=== PATIENT | male | born 1950 | race Caucasian/White ===

== ENCOUNTER → 2016-12-10 | Day surgery (SDC) | payer OTHER ==
[~2016-12-10] MED LIST: OMEPRAZOLE20 M1 PO; OMEPRAZOLE40 M1 PO; PERCOCET10 PO; XANAX1 MG PO; XYZAL5 MG PO
--- NOTE | ~2016-12-10 | OR ---
Unit #: [id number] #: [id number] Patient: UZMA HORTON [id number] [address] [address] [id number] O MR#: [id number] NAME: UZMA HORTON. ROOM: Date of Procedure: 12/10/2016 Admission Date: 12/10/2016 Surgeon: Catarino Nunez M.D. : 1950 Attending Physician: Catarino Nunez M.D. Primary Care Physician: Samantha Hickey M.D. OPERATIVE REPORT JOB NOTE: CC: [facility] PREOPERATIVE DIAGNOSES Back pain, radiculopathy, herniated nucleus pulposus. POSTOPERATIVE DIAGNOSES Back pain, radiculopathy, herniated nucleus pulposus. PROCEDURE PERFORMED Lumbar epidural steroid injection with intravenous sedation and fluoroscopic guidance for needle localization. INDICATIONS FOR PROCEDURE The patient is a 66-year-old male with worsening back and left lower extremity pain. This is not settle with conservative treatment. Workup demonstrated a left-sided L5-S1 disk herniation impinging left S1 nerve root. Plan is for trial of epidural steroids. Based on his history, pathology, and symptomatology, he was seen Dr. Bowen, who recommend holding on surgery. DESCRIPTION OF PROCEDURE The patient was placed in a seated position. Standard monitors were applied. 2 mg of Versed were given for sedation and anxiolysis, which were adequate. Vital signs remained stable. Sterile prep and drape then of the lumbar area was performed. The skin then at the L5 level was localized with 1% lidocaine. An 18-gauge Hustead needle was then advanced via loss of resistance technique and fluoroscopic guidance in toward the epidural space. The patient did not complain of pain or paresthesia during needle advancement. After confirming proper positioning with fluoroscopy and radiographic contrast, 80 mg of Depo-Medrol and 4 mL of 0.125% bupivacaine were deposited. The patient tolerated the procedure otherwise well and was discharged to the recovery room in stable condition. Dictated by... Catarino Nunez M.D. LHP/modl TD: 12/10/2016 10:54 JOB #: [id number] Unit #: [id number] #: [id number] Patient: UZMA HORTON OPERATIVE REPORT Page 1 of 1 X Catarino Nunez MD X PROCEDURE OPERATIVE NOTE
== END | disposition home or self-care (01) ==
LOC: CCSC 08:08
PROVIDERS: Pain Medicine Pain Medicine
PROC: 3E0S3BZ Introduction of Anesthetic Agent into Epidural Space, Percutaneous Approach (ICD-10-PCS; 2016-12-10)
PROC: 3E0S33Z Introduction of Anti-inflammatory into Epidural Space, Percutaneous Approach (ICD-10-PCS; principal; 2016-12-10 09:15)
DX: M51.16 Intervertebral disc disorders with radiculopathy, lumbar region (principal)
CPT/HCPCS: J1040; J2250

== ENCOUNTER → 2016-12-22 | Day surgery (SDC) | payer OTHER ==
--- NOTE | ~2016-12-22 | OR ---
Unit #: [id number] #: [id number] Patient: UZMA HORTON [id number] [address] [address] [id number] O MR#: [id number] NAME: UZMA HORTON ROOM: Date of Procedure: 12/22/2016 Admission Date: 12/22/2016 Surgeon: Catarino Nunez M.D. : 1950 Attending Physician: Catarino Nunez M.D. Primary Care Physician: Samantha Hickey M.D. OPERATIVE REPORT JOB NOTE: CC: [facility] PREOPERATIVE DIAGNOSES Back pain, radiculopathy, degenerative lumbar disk disease. POSTOPERATIVE DIAGNOSES Back pain, radiculopathy, degenerative lumbar disk disease. PROCEDURE PERFORMED Lumbar epidural steroid injection with intravenous sedation and fluoroscopic guidance for needle localization. INDICATIONS FOR PROCEDURE The patient is a 66-year-old male with back and left lower extremity pain due to degenerative disk disease with effacement of left S1 nerve root. He failed to settle with conservative treatment. So, decision was made to give him a trial of epidural steroids. Initial injection resulted in some mild to moderate improvement of his symptom complex for several days before returned towards its baseline. Based on the partial response, his pathology, symptomatology, and strongly wished to avoid surgery, we are going to proceed with a repeat injection today. DESCRIPTION OF PROCEDURE The patient was placed in the seated position. Standard monitors were applied. 2 mg of Versed were given for sedation and anxiolysis, which were adequate. Vital signs remained stable. Sterile prep and drape then of the lumbar area was performed. The skin then at the L5-S1 level was localized with 1% lidocaine. An 18-gauge MyPrintCloud[employer]ad needle was then advanced via loss of resistance technique and fluoroscopic guidance in toward the epidural space. The patient did not complain of pain or paresthesia during needle advancement. After confirming proper positioning with fluoroscopy and radiographic contrast, 80 mg of Depo-Medrol and 4 mL of 0.125% bupivacaine were deposited. The patient tolerated the procedure otherwise well and was discharged to the recovery room in stable condition. Dictated by... Catarino Nunez M.D. LHP/modl Unit #: [id number] #: [id number] Patient: UZMA HORTON TD: 12/22/2016 16:45 JOB #: [id number] OPERATIVE REPORT Page 1 of 1 X Catarino Nunez MD X PROCEDURE OPERATIVE NOTE
== END | disposition home or self-care (01) ==
LOC: CCSC 07:33
DX: M51.16 Intervertebral disc disorders with radiculopathy, lumbar region (principal)
CPT/HCPCS: J1040; J2250